=== PATIENT | female | born 1965 | race African-American/Black ===

== ENCOUNTER 2017-11-16 07:46 | Emergency (ER) | payer OTHER ==
[~2017-11-16] VITALS: Ht 157.5 cm; Wt 80.0 kg
[~2017-11-16 07:46] MED LIST: BUTACAP2 PO; GLUCTAB PO; HYDR-3535 PO; MOBI15TA PO
[2017-11-16 07:52] VITALS: BP 164/102; PULSE 84; RESP 16; TEMP 98.5; O2SAT 98
[2017-11-16] MEDS ORDERED: METF500T PO (08:03)
--- NOTE | 2017-11-16 08:13 | PD ---
HPI Chief Complaint: Pain: Acute or Chronic Time Seen by Provider: 07:59 Travel History International Travel<30 days: No Contact w/Intl Traveler<30days: No Traveled to known affect area: No History of Present Illness HPI 52-year-old Afro-French female presents the emergency department with right- sided arm pain. She states it started 2 days ago without significant history of injury. She states it's gotten progressively worse over the past 2 days. She states it feels like a fullness and swelling of her whole arm. She denies numbness or tingling. She has no weakness but it hurts to move her arm. Denies pain in the shoulder or neck. Pain is currently 8 out of 10. Patient states she has Lortab at home from pain management which she has been taking, but pain is worsening. Patient has no history of sickle cell trait. She is allergic to doxycycline, minocycline, and tigecycline. PFSH Past Medical History Arthritis: Yes Anxiety: No Depression: Yes Heart Rhythm Problems: No Cancer: No Cardiac Catheterization: No Cardiovascular Problems: No High Cholesterol: No Congestive Heart Failure: No Diabetes: Yes Patient Takes Glucophage: Yes Diminished Hearing: No Endocrine: No Gastrointestinal Disorders: Yes (reflux) Genitourinary: No Headaches: Yes Hepatitis: No Hiatal Hernia: No Immune Disorder: No Musculoskeletal: Yes (arthritis of the back painful right knee) Neurologic: No Psychiatric: Yes (depression) Reproductive: No Respiratory: No Thyroid Disease: No Tetanus Vaccination: Unknown Influenza Vaccination: No ?: Not Past Surgical History Abdominal Surgery: No AICD: No Cardiac Surgery: No Coronary Artery Bypass Graft: No Ear Surgery: No Endocrine Surgery: No Eye Surgery: No Genitourinary Surgery: No Gynecologic Surgery: Yes (ovarian mass removed prior to hysterectomy) Hysterectomy: Yes Joint Replacement: No Oral Surgery: No Pacemaker: No Thoracic Surgery: No Social History Alcohol Use: No Tobacco Use: No Substance Use: No Allergies-Medications (Allergen,Severity, Reaction): Coded Allergies: doxycycline (Unverified Allergy, Severe, RASH, 05/15/17) minocycline (Unverified Allergy, Severe, RASH, 05/15/17) tigecycline (Unverified Allergy, Severe, RASH, 05/15/17) Reported Meds & Prescriptions Reported Meds & Active Scripts Active Flexeril (Cyclobenzaprine HCl) 10 Mg Tab 10 Mg PO TID Prednisone 20 Mg Tab 20 Mg PO BID 5 Days Reported Hydrocodone-Acetamin 10-325 mg (Hydrocodone/Acetaminophen) 10 Mg-325 Mg Tablet 1 Tab PO Q4HR PRN Review of Systems Except as stated in HPI: all other systems reviewed are Neg General / Constitutional: No: Fever Eyes: No: Visual changes HENT: No: Headaches Cardiovascular: No: Chest Pain or Discomfort Respiratory: No: Shortness of Breath Gastrointestinal: No: Abdominal Pain Genitourinary: No: Dysuria Musculoskeletal: Positive: Myalgias, Limited ROM, Pain, No: Arthralgias (see history present illness), Weakness Skin: No Rash Neurologic: No: Weakness Psychiatric: No: Depression Endocrine: No: Polydipsia Hematologic/Lymphatic: No: Easy Bruising Physical Exam Narrative GENERAL: Morbidly obese female in moderate distress. SKIN: Warm and dry. Normal color. Normal turgor. No rash. HEAD: Atraumatic. Normocephalic. EYES: Pupils equal and round. No scleral icterus. No injection or drainage. ENT: No nasal bleeding or discharge. Mucous membranes pink and moist. Pharynx is clear. Airway is patent. NECK: Trachea midline. Supple and nontender without lymphadenopathy. CARDIOVASCULAR: Regular rate and rhythm. RESPIRATORY: No accessory muscle use. Clear to auscultation. Breath sounds equal bilaterally. MUSCULOSKELETAL: Extremities without clubbing, cyanosis, or edema. No obvious deformities. Patient has intact gusset ripper strength in the right hand, but pain with palpation to the soft tissues of the right arm, but not with any bony tenderness. Her pain is generalized, more consistent with DVT versus muscular injury. Capillary refill is normal. NEUROLOGICAL: Awake and alert. No obvious cranial nerve deficits. Motor grossly within normal limits. Five out of 5 muscle strength in the arms and legs. Normal speech. PSYCHIATRIC: Appropriate mood and affect; insight and judgment normal. Data Data Last Documented VS Vital Signs Date Time Temp Pulse Resp B/P (MAP) Pulse Ox O2 Delivery O2 Flow Rate FiO2 11/16/17 09:45 86 17 157/98 (117) 99 11/16/17 08:32 Room Air 11/16/17 07:52 98.5 Orders Orders Complete Blood Count With Diff (11/16/17 08:07) Comprehensive Metabolic Panel (11/16/17 08:07) Prothrombin Time / Inr (Pt) (11/16/17 08:07) Act Partial Throm Time (Ptt) (11/16/17 08:07) Chest, Single Ap (11/16/17 08:07) Ecg Monitoring (11/16/17 08:07) Iv Access Insert/Monitor (11/16/17 08:07) Oximetry (11/16/17 08:07) Aspirin Chew (Aspirin Chew) (11/16/17 08:15) Morphine Inj (Morphine Inj) (11/16/17 08:15) Sodium Chloride 0.9% Flush (Ns Flush) (11/16/17 08:15) Sodium Chlorid 0.9% 500 Ml Inj (Ns 500 M (11/16/17 08:15) Electrocardiogram (11/16/17 ) Us Arm Venous Doppler (11/16/17 08:07) Ed Discharge Order (11/16/17 09:31) Labs Laboratory Tests Test 11/16/17 08:26 White Blood Count 7.5 TH/MM3 Red Blood Count 5.56 MIL/MM3 Hemoglobin 12.5 GM/DL Hematocrit 39.1 % Mean Corpuscular Volume 70.2 FL Mean Corpuscular Hemoglobin 22.4 PG Mean Corpuscular Hemoglobin Concent 31.9 % Red Cell Distribution Width 17.2 % Platelet Count 320 TH/MM3 Mean Platelet Volume 7.9 FL Neutrophils (%) (Auto) 47.1 % Lymphocytes (%) (Auto) 45.0 % Monocytes (%) (Auto) 5.5 % Eosinophils (%) (Auto) 1.4 % Basophils (%) (Auto) 1.0 % Neutrophils # (Auto) 3.5 TH/MM3 Lymphocytes # (Auto) 3.4 TH/MM3 Monocytes # (Auto) 0.4 TH/MM3 Eosinophils # (Auto) 0.1 TH/MM3 Basophils # (Auto) 0.1 TH/MM3 CBC Comment DIFF FINAL Differential Comment Prothrombin Time 9.9 SEC Prothromb Time International Ratio 1.0 RATIO Activated Partial Thromboplast Time 20.8 SEC Blood Urea Nitrogen 11 MG/DL Creatinine 0.59 MG/DL Random Glucose 101 MG/DL Total Protein 7.2 GM/DL Albumin 3.3 GM/DL Calcium Level 8.4 MG/DL Alkaline Phosphatase 107 U/L Aspartate Amino Transf (AST/SGOT) 16 U/L Alanine Aminotransferase (ALT/SGPT) 12 U/L Total Bilirubin 0.4 MG/DL Sodium Level 140 MEQ/L Potassium Level 4.1 MEQ/L Chloride Level 106 MEQ/L Carbon Dioxide Level 28.5 MEQ/L Anion Gap 6 MEQ/L Estimat Glomerular Filtration Rate 129 ML/MIN MDM Medical Decision Making Medical Screen Exam Complete: Yes Emergency Medical Condition: Yes Medical Record Reviewed: Yes Differential Diagnosis Right arm pain. DVT. Radiculopathy. Narrative Course Chest x-ray is ordered. EKG is ordered showing normal sinus rhythm without significant changes. Laboratory: CBC, CMP, coagulation studies. Ultrasound the right arm is ordered. Labs are unremarkable. Chest x-ray is negative for acute process per radiologist. Ultrasound of the right arm is normal without signs of DVT. Patient is felt to have radicular pain of the right arm. Patient will be treated with prednisone 20 mg twice a day 5 days. Patient also given Flexeril 10 mg up to 3 times a day #15. Patient to continue her regular pain medicine that she has at home as needed. Patient follow with her primary care physician if symptoms continue or worsen as needed. Diagnosis Primary Impression: Right arm pain Referrals: Primary Care Physician Patient Instructions: Cervical Radiculopathy (ED), General Instructions Additional Instructions: Labs are unremarkable. Chest x-ray is negative for acute process per radiologist. Ultrasound of the right arm is normal without signs of DVT. Patient is felt to have radicular pain of the right arm. Patient will be treated with prednisone 20 mg twice a day 5 days. Patient also given Flexeril 10 mg up to 3 times a day #15. Patient to continue her regular pain medicine that she has at home as needed. Patient follow with her primary care physician if symptoms continue or worsen as needed. Med/Other Pt SpecificInfo: Prescription(s) given Scripts Cyclobenzaprine (Flexeril) 10 Mg Tab 10 MG PO TID for Muscle Spasm, #15 TAB 0 Refills Prov: Iron Dowsn MD 11/16/17 Prednisone (Prednisone) 20 Mg Tab 20 MG PO BID for 5 Days, #10 TAB 0 Refills Prov: Iron Downs MD 11/16/17 Disposition: 01 DISCHARGE HOME Condition: Stable Todd Gudino Nov 16, 2017 08:13
[2017-11-16] MEDS ORDERED: MORPHINE SULFATE 4 MG/ML INJ IV PUSH ONE (08:15)
[2017-11-16] MEDS ORDERED: SODIUM CHLORIDE 0.9% FLUSH 10 ML FLUSH IVF PRN (08:15)
[2017-11-16] MEDS ORDERED: ASPIRIN 81 MG CHEW TAB PO ONE (08:15)
[2017-11-16] MEDS ORDERED: SODIUM CHLORID 0.9% 500 ML INJ 500 ML IV ONE (08:15)
[2017-11-16] MEDS ORDERED: HYDR-3583 PO (08:31)
[2017-11-16 08:32] VITALS: O2SAT 96
--- NOTE | 2017-11-16 08:33 | RADRPT ---
EXAM DATE/TIME: 11/16/2017 08:14 [facility] COMPARISON: KNEE RIGHT COMPLETE (4VWS), December 06, 2015, 23:39. INDICATIONS : Right arm pain and cough. MEDICAL HISTORY : None. SURGICAL HISTORY : None. ENCOUNTER: Initial ACUITY: 1 day PAIN SCORE: 0/10 LOCATION: Bilateral chest FINDINGS: A single view of the chest demonstrates the lungs to be symmetrically aerated without evidence of mas s, infiltrate or effusion. The cardiomediastinal contours are unremarkable. Osseous structures are intact. CONCLUSION: 1. No acute cardiopulmonary findings. Conrad Au MD on November 16, 2017 at 8:31 Board Certified Radiologist. This report was verified electronically.
[2017-11-16 08:47] LABS: AUTOMATED NEUTROPHIL # 3.5 TH/MM3 (1.8-7.7); BASOPHIL # 0.1 TH/MM3 (0-0.2); EOSINOPHIL # 0.1 TH/MM3 (0-0.4); EOSINOPHIL % 1.4 % (0.0-4.0); HEMATOCRIT 39.1 % (35.0-46.0); HEMOGLOBIN 12.5 GM/DL (11.6-15.3); LYMPHOCYTE # 3.4 TH/MM3 (1.0-4.8); MEAN CELL VOLUME 70.2 FL (80.0-100.0); MEAN CORPUSCULAR HEMOGLOBIN 22.4 PG (27.0-34.0); MEAN CORPUSCULAR HGB CONC 31.9 % (32.0-36.0); MEAN PLATELET VOLUME 7.9 FL (7.0-11.0); MONO % 5.5 % (0.0-8.0); MONOCYTE # 0.4 TH/MM3 (0-0.9); NEUT % 47.1 % (16.0-70.0); PLATELET COUNT 320 TH/MM3 (150-450); RED BLOOD COUNT 5.56 MIL/MM3 (4.00-5.30); RED CELL DISTRIBUTION WIDTH 17.2 % (11.6-17.2); WHITE BLOOD COUNT 7.5 TH/MM3 (4.0-11.0)
[2017-11-16 09:04] LABS: PROTHROMBIN TIME - PATIENT 9.9 SEC (9.8-11.6)
--- NOTE | 2017-11-16 09:11 | RADRPT ---
EXAM DATE/TIME: 11/16/2017 08:40 [facility] COMPARISON: No previous studies available for comparison. INDICATIONS : Right arm pain. MEDICAL HISTORY : Gastroesophageal reflux disease. Arthritis. Ovarian mass. Diabetes. Depression. Headache. SURGICAL HISTORY : Hysterectomy. Ovarian mass removal. ENCOUNTER: Initial ACUITY: 3 days PAIN SCORE: 6/10 LOCATION: Right arm. FINDINGS: There is spontaneous flow documented in the brachial, basilic, cephalic, axillary, and subclavian vei ns. The vessels are compressible and augmentation response is documented. No filling defects are se en. The flow is phasic with respiration. Direction of flow in the jugular vein is caudal. CONCLUSION: Negative for deep venous thrombosis. Jesse Au MD FACR on November 16, 2017 at 9:09 Board Certified Radiologist. This report was verified electronically.
[2017-11-16 09:15] LABS: ALT (GPT) 12 U/L (10-53)
[2017-11-16 09:17] LABS: ALKALINE PHOSPHATASE 107 U/L (45-117); TOTAL BILIRUBIN ADULT 0.4 MG/DL (0.2-1.0); TOTAL PROTEIN 7.2 GM/DL (6.4-8.2)
[2017-11-16 09:22] LABS: ALBUMIN 3.3 GM/DL (3.4-5.0); AST (GOT) 16 U/L (15-37); BICARBONATE 28.5 MEQ/L (21.0-32.0); BLOOD UREA NITROGEN 11 MG/DL (7-18); CALCIUM 8.4 MG/DL (8.5-10.1); CHLORIDE 106 MEQ/L (98-107); CREATININE 0.59 MG/DL (0.50-1.00); GLOMERULAR FILTRATION RATE 129 ML/MIN (>89); GLUCOSE,RANDOM 101 MG/DL (74-106); SODIUM (NA) 140 MEQ/L (136-145)
[2017-11-16] MEDS ORDERED: CYCL10TA PO (09:30)
[2017-11-16] MEDS ORDERED: PRED20 PO (09:30)
[2017-11-16 09:45] VITALS: BP 157/98
--- NOTE | 2017-11-16 23:34 | EKG ---
Date Performed: 11/16/2017 Time Performed: 08:30:15 PTAGE: 52 years EKG: Sinus rhythm NORMAL ECG PREVIOUS TRACING : 03/20/2016 12.14 Since the prior tracing, there has been no significant londono DOCTOR: Blane Wagoner Interpretating Date/Time 11/16/2017 23:33:11
== END 2017-11-16 09:45 | disposition home or self-care (01) ==
LOC: NEPD 07:46
DX: M79.601 Pain in right arm (principal); R22.31 Localized swelling, mass and lump, right upper limb; E11.9 Type 2 diabetes mellitus without complications; Z87.39 Personal history of other diseases of the musculoskeletal system and connective tissue; Z87.19 Personal history of other diseases of the digestive system; Z86.59 Personal history of other mental and behavioral disorders
CPT/HCPCS: 71045; 80053; 85025; 85610; 85730; 93005; 93971; 96361; 96374; 99285; J2270; J7040